=== PATIENT | female | born 1990 | race Caucasian/White ===

== ENCOUNTER 2021-05-29 18:55 | Emergency (ER) | payer SELFPAY ==
[2021-05-29 21:12] LABS: CORONAVIRUS COVID-19 NAA NEGATIVE (NEGATIVE); INFLUENZA A NAA NEGATIVE (NEGATIVE); INFLUENZA B NAA NEGATIVE (NEGATIVE)
== END 2021-05-29 22:11 | disposition home or self-care (01) ==
LOC: MW.ED 18:55
DX: B34.9 Viral infection, unspecified (principal); J06.0 Acute laryngopharyngitis; Z20.822 Contact with and (suspected) exposure to COVID-19
CPT/HCPCS: 0240U; 99283

== ENCOUNTER 2022-06-07 01:42 | Emergency (ER) | payer SELFPAY ==
[2022-06-07] MEDS ORDERED: Sodium Chloride 0.9% 10 ML Syringe FLUSH PRN (01:50)
[2022-06-07] MEDS ORDERED: Sodium Chloride 0.9% 2.5 ML Syringe FLUSH PRN (01:50)
[2022-06-07 02:46] LABS: CARBON DIOXIDE,CO2 25.6 mmol/L (21.0-32.0); POTASSIUM,K 4.1 mmol/L (3.5-5.1)
[2022-06-07] MEDS ORDERED: Ibuprofen 600 MG Tab PO ONE (02:47)
[2022-06-07] MEDS ORDERED: Ondansetron 4 MG Tab.DIS PO ONE (03:23)
== END 2022-06-07 04:25 ==
LOC: MW.ED 01:42
DX: T40.2X1A Poisoning by other opioids, accidental (unintentional), initial encounter (principal); S00.81XA Abrasion of other part of head, initial encounter; Z91.030 Bee allergy status; W18.30XA Fall on same level, unspecified, initial encounter
CPT/HCPCS: 36415; 70450; 70486; 71045; 80053; 85025; 93005; 99285; A9270; J3490; 93010; 99284

== ENCOUNTER 2022-10-24 23:42 | Emergency (ER) | payer BC ==
[2022-10-25] MEDS ORDERED: Acetaminophen/HYDROcodone 325-10 MG Tab PO ONE (04:16)
[2022-10-25] MEDS ORDERED: Ibuprofen 600 MG Tab PO ONE (04:16)
[2022-10-25] MEDS ORDERED: Acetaminophen 325 MG Tab PO ONE (04:16)
[2022-10-25] MEDS ORDERED: Bacitracin Oint 28.35 GM Tube TOP SCH (06:00)
== END 2022-10-25 04:31 | disposition home or self-care (01) ==
LOC: MW.ED 23:42
DX: S60.421A Blister (nonthermal) of left index finger, initial encounter (principal); S60.420A Blister (nonthermal) of right index finger, initial encounter; F17.210 Nicotine dependence, cigarettes, uncomplicated; Z91.030 Bee allergy status
CPT/HCPCS: 16020; 87070; 87205; 99283; A9270; 87077; 87186

== ENCOUNTER 2023-12-23 16:49 | Emergency (ER) | payer BC ==
[2023-12-23] MEDS: Sodium Chloride 0.9% 1,000 ML IV STA (17:13)
[2023-12-23 17:23] LABS: BASOPHILS ABSOLUTE AUTO 0.05 K/uL (0.00-0.20); BASOPHILS PERCENT AUTO 0.8 % (0.0-1.0); EOSINOPHILS ABSOLUTE AUTO 0.12 K/uL (0.00-0.45); HEMATOCRIT 38.1 % (37.0-47.0); HEMOGLOBIN 13.2 g/dL (12.0-16.0); IMMATURE GRAN ABSOLUTE AUTO 0.01 K/uL (0.00-0.05); IMMATURE GRAN PERCENT AUTO 0.2 % (0.0-0.4); LYMPHOCYTES ABSOLUTE AUTO 2.09 K/uL (1.00-4.80); LYMPHOCYTES PERCENT AUTO 35.5 % (24.0-44.0); MEAN CORPUSCULAR HEMOGLOBIN 32.4 pg (28.0-32.0); MEAN CORPUSCULAR HGB CONC 34.6 g/dL (32.0-36.0); MEAN CORPUSCULAR VOLUME 93.4 fL (83.0-99.0); MEAN PLATELET VOLUME 9.2 fL (9.4-12.3); MONOCYTES ABSOLUTE AUTO 0.41 K/uL (0.00-0.80); NEUTROPHILS ABSOLUTE AUTO 3.21 K/uL (1.80-7.70); NEUTROPHILS PERCENT AUTO 54.5 % (41.0-71.0); PLATELET COUNT,PLT 228 K/uL (150-400); RED BLOOD CELL COUNT 4.08 M/uL (4.10-5.30); WHITE BLOOD CELL COUNT,WBC 5.89 K/uL (3.9-11.3)
[2023-12-23 17:46] LABS: ALBUMIN 3.6 g/dL (3.4-5.0); BILIRUBIN TOTAL 0.5 mg/dL (0.2-1.0); CALCIUM 8.4 mg/dL (8.5-10.1); CARBON DIOXIDE,CO2 23.8 mmol/L (21.0-32.0); CREATININE 0.6 mg/dL (0.6-1.0); EST CRCL DRUG DOSING (CG) 113.01 mL/min; POTASSIUM,K 3.4 mmol/L (3.5-5.1); PROTEIN TOTAL,TP 7.1 g/dL (6.4-8.2)
[2023-12-23 18:03] LABS: MAGNESIUM 2.2 mg/dL (1.8-2.4)
== END 2023-12-23 18:28 | disposition home or self-care (01) ==
LOC: MW.ED 16:49
DX: R55 Syncope and collapse (principal); Z91.030 Bee allergy status; Z75.8 Other problems related to medical facilities and other health care
CPT/HCPCS: 36415; 71045; 80053; 83735; 84484; 84703; 85025; 93005; 96360; 99285; J7030; 93010